=== PATIENT | male | born 1945 | race Caucasian/White ===

== ENCOUNTER 2023-12-26 06:28 | Day surgery (SDC) | payer OTHER ==
[~2023-12-26] VITALS: Ht 172.7 cm; Wt 53.2 kg
[2023-12-26] MEDS ORDERED: ALBU18HF12 IH (07:53)
[2023-12-26] MEDS ORDERED: SIMV-259 PO (07:53)
[2023-12-26] MEDS ORDERED: ISOS30TA68 PO (07:53)
[2023-12-26] MEDS ORDERED: AMLO-257 PO (07:53)
[2023-12-26] MEDS ORDERED: ASPI-1450 PO (07:53)
[2023-12-26] MEDS ORDERED: LOSA-381 PO (07:53)
[2023-12-26] MEDS ORDERED: FAMO20 PO (07:53)
[2023-12-26] MEDS ORDERED: SODIUM CHLORIDE 0.9% 1,000 ML ONE (08:04)
[2023-12-26] MEDS ORDERED: FentaNYL CITRATE PF 100 MCG/2 ML VIAL ONE (08:26)
[2023-12-26] MEDS ORDERED: MIDAZOLAM HCL 2 MG/2 ML VIAL ONE (08:26)
[2023-12-26] MEDS: SODIUM CHLORIDE 0.9% 1,000 ML IV ONE (08:49)
[2023-12-26 09:05] VITALS: PULSE 54; RESP 20; O2SAT 100
[2023-12-26] MEDS ORDERED: MethylPREDNISolone SOD SUCC 125 MG/2 ML VIAL ONE (09:31)
[2023-12-26] MEDS: MethylPREDNISolone SOD SUCC 125 MG/2 ML VIAL IVP ONE (09:35)
[2023-12-26] MEDS ORDERED: LIDOCAINE 2% 11 ML JELLY ONE (12:00)
[2023-12-26] MEDS ORDERED: BENZOCAINE 20% 50 MCG/SPRAY 57 GM ONE (12:00)
[2023-12-26] MEDS ORDERED: ALBUTEROL SULFATE 2.5 MG/0.5 ML NEB SOLUTION NEB ONE (12:00)
[2023-12-26] MEDS ORDERED: LIDOCAINE 4% 50 ML SOLUTION ONE (12:00)
== END 2023-12-26 11:50 | disposition home or self-care (01) ==
LOC: SURGERY 06:28
PROVIDERS: ATTEND Internal Medicine Critical Care Medicine
DX: J38.4 Edema of larynx (principal); B37.0 Candidal stomatitis; F17.210 Nicotine dependence, cigarettes, uncomplicated; Z79.899 Other long term (current) drug therapy; Z98.890 Other specified postprocedural states
CPT/HCPCS: 31623; 87206; 87101; 87220; 87070; 88108; 31624; 94640; 71045; 71250; 87015; J3010; J2250; J2930; Q9967; J7030; J7613; Z7610